=== PATIENT | male | born 1990 | race Caucasian/White ===

== ENCOUNTER 2017-07-29 20:31 | Emergency (ER) | payer OTHER ==
[2017-07-29] MEDS ORDERED: OXYCODONE/APAP 5/325 TAB PO ONE (21:19)
--- NOTE | 2017-07-29 21:19 | EDPHY ---
H & P Time Seen by Provider: 07/29/17 21:08 HPI/ROS: CHIEF COMPLAINT: Left hand pain HISTORY OF PRESENT ILLNESS: 27-year-old male arrives via private vehicle complaining of acute left 4th metacarpal pain injuries playing volleyball, diving for a ball and someone kicked his hand accidentally. Pain to the general location of the 4th metacarpal. No paresthesia. No sensory deficit. Occurred shortly prior to arrival. PHYSICAL EXAM (Prior to examination, patient consented to physical exam, hands were washed and my usual and customary physical exam procedures followed) 1) GENERAL: Well-developed, well-nourished, alert and oriented . appears uncomfortable 2) HEAD: Normocephalic 3) HEENT: Pupils equal, round, reactive to light bilaterally. 4) LUNGS: Breathing comfortably. 5) MUSCULOSKELETAL: Tender to palpation 4th metacarpal. No deformity no angulation. No shortening of digits. Normal cascading of digits Soft compartments. Normal coloration. 6) SKIN: intact 7) VASCULAR: pulses and cap refill present are brisk 8) NEUROLOGIC: Radial, ulnar, median nerve function intact with no deficits appreciated on exam DIFFERENTIAL DIAGNOSIS: in no particular order including but not limited to fracture, sprain, compartment syndrome Procedure: Splint a volar Orthoglass splint was applied by ER administrative technician. After application of the splint I returned and re-examined the patient. The splint was adequately immobilizing the joint and distal to the splint the patient's circulation and sensation were intact. Patient shows no signs of compartment syndrome. Was given orthopedic precautions. Smoking Status: Never smoked Constitutional: Initial Vital Signs Temperature (C) 36.7 C 07/29/17 20:33 Heart Rate 81 07/29/17 20:33 Respiratory Rate 17 07/29/17 20:33 Blood Pressure 131/65 H 07/29/17 20:33 O2 Sat (%) 99 07/29/17 20:33 O2 Delivery Mode Room Air Allergies/Adverse Reactions: aspirin Allergy (Verified 07/29/17 20:33) codeine Allergy (Verified 07/29/17 20:33) crab Allergy (Verified 07/29/17 20:33) ibuprofen Allergy (Verified 07/29/17 20:33) morphine Allergy (Verified 07/29/17 20:33) salicylic acid Allergy (Verified 07/29/17 20:33) Home Medications: Medication Instructions Recorded NK [No Known Home Meds] 07/29/17 MDM/Departure - MDM Imaging Results: Imaging Impressions Hand X-Ray 07/29/17 20:36 Impression: Nondisplaced transverse fracture of the distal 4th metacarpal. Images reviewed by myself Medications Given: Discontinued Medications Ondansetron HCl (Zofran Odt 4 Mg Prepack#2) 1 btl TAKEHOME EDNOW ONE Stop: 07/29/17 21:26 Last Admin: 07/29/17 21:27 Dose: 1 btl Oxycodone/Acetaminophen (Percocet 5/325) 2 tab PO EDNOW ONE Stop: 07/29/17 21:20 Last Admin: 07/29/17 21:25 Dose: 2 tab Oxycodone/Acetaminophen (Percocet 5/325mg Prepack#4) 1 btl TAKEHOME EDNOW ONE Stop: 07/29/17 21:21 Last Admin: 07/29/17 21:25 Dose: 1 btl ED Course/Re-evaluation: Patient is neurovascular intact no evidence of compartment syndrome.Care of patient under supervision of secondary supervising physician Dr Alonso . - Depart Disposition: Home, Routine, Self-Care Clinical Impression: Fracture of fourth metacarpal bone of left hand Qualifiers: Encounter type: initial encounter Fracture type: closed Metacarpal location: neck Fracture alignment: nondisplaced Qualified Code(s): S62.365A - Nondisplaced fracture of neck of fourth metacarpal bone, left hand, initial encounter for closed fracture Condition: Good Instructions: Oxycodone/Acetaminophen (By mouth), Ondansetron (By mouth), Hand Fracture (ED) Additional Instructions: Return to the ER immediately if you experience discoloration, have worsening pain, numbness, tingling, or any other symptoms that concern you. If you received x-rays in the emergency department today, be advised, that ligamentous , tendon, muscular, and other non-bony injury cannot be fully ruled out. Try to keep your affected extremity elevated above the level of your chest, and keep cold packs on the affected area, for the next 48 hours. Referrals: Diaz Bird MD [Medical Doctor] - 2-3 days, call for appt. (Dr. Bird is a hand surgeon)
[2017-07-29] MEDS ORDERED: OXYCODONE/APAP 5/325MG PREPACK#4 BTL TAKEHOME ONE (21:20)
[2017-07-29] MEDS ORDERED: ONDANSETRON 4MG PREPACK#2 BTL TAKEHOME ONE ×2 (21:24→21:25)
[2017-07-29 21:51] VITALS: BP 130/80; PULSE 100; RESP 16; TEMP 98.6; O2SAT 95
== END 2017-07-29 21:49 | disposition home or self-care (01) ==
DX: S62.365A Nondisplaced fracture of neck of fourth metacarpal bone, left hand, initial encounter for closed fracture (principal); W50.1XXA Accidental kick by another person, initial encounter; Y99.8 Other external cause status; Y93.68 Activity, volleyball (beach) (court)

== ENCOUNTER 2018-01-24 07:55 | Emergency (ER) | payer OTHER ==
--- NOTE | 2018-01-24 08:17 | EDPHY ---
H & P Time Seen by Provider: 01/24/18 08:04 HPI/ROS: Chief complaint. Fever HPI. 27-year-old male awoke this morning at 3:00 a.m. With chills. He had nausea vomiting but no diarrhea. He then developed headache, muscle aches. Denies abdominal pain. No recent travel or known exposures. No urinary symptoms. No rash. He and his girlfriend note fever to 101 degrees at 7:00 a.m.. He did not take anything for his fever. Some cough but no chest discomfort or shortness of breath. ROS Constitutional. Fever Eyes. no problems with vision ENT. Congestion Cardiovascular. no chest pain Respiratory. Cough Abdominal. Vomiting . no problems urinating MS. Myalgias Skin. no rash Lymph. no swollen glands Neuro. headache, no dizziness, no difficulty walking or with speech Past Medical/Surgical History: Appendectomy Social History: Single, nonsmoker, no alcohol Smoking Status: Never smoked Physical Exam: General Appearance: Alert well-developed male mild distress vital signs significant for heart rate of 101. Afebrile Eyes: Pupils equal and round no pallor or injection. ENT, Mouth: Mucous membranes are moist. Respiratory: There are no retractions, lungs are clear to auscultation. Cardiovascular: Regular rate and rhythm. Gastrointestinal: Abdomen is soft and nontender, no masses, bowel sounds normal. Neurological: Awake and alert, sensory and motor exams grossly normal. Skin: Warm and dry, no rashes. Musculoskeletal: Neck is supple nontender. Extremities symmetrical, full range of motion. Psychiatric: Patient is oriented X 3, there is no agitation. Constitutional: Initial Vital Signs Temperature (C) 36.8 C 01/24/18 07:59 Heart Rate 101 H 01/24/18 07:59 Respiratory Rate 18 01/24/18 07:59 Blood Pressure 124/80 H 01/24/18 07:59 O2 Sat (%) 95 01/24/18 07:59 O2 Delivery Mode Room Air Allergies/Adverse Reactions: aspirin Allergy (Verified 01/24/18 07:58) codeine Allergy (Verified 01/24/18 07:58) crab Allergy (Verified 01/24/18 07:58) ibuprofen Allergy (Verified 01/24/18 07:58) morphine Allergy (Verified 01/24/18 07:58) salicylic acid Allergy (Verified 01/24/18 07:58) Home Medications: Medication Instructions Recorded Ondansetron Odt [Zofran Odt] 4 mg PO Q4PRN PRN #4 tab 01/24/18 Medical Decision Making Procedures: IV normal saline with target of 1 L initially. Zofran IV. Tylenol orally. Flu swab ED Course/Re-evaluation: Re-evaluation at 8:55 a.m.. Patient feeling better. Re-evaluation again at 10:10 a.m.. Patient feeling better. His symptoms are largely resolved. No nausea vomiting. No headache. Neck back pain are improved. Taking oral fluids. The patient, his girlfriend, and I discussed laboratory evaluation, treatment plan including criteria for return importance of follow-up and further evaluation. He expresses understanding and Differential Diagnosis: I think this is viral syndrome. Considered influenza. I do not think the patient has bacterial infection. I have considered pneumonia as well. - Data Points Laboratory Results: Laboratory Results 01/24/18 08:20 01/24/18 08:20 01/24/18 01/24/18 01/24/18 08:45 08:20 08:20 WBC RBC Hgb Hct MCV MCH MCHC RDW Plt Count MPV Neut % (Auto) Lymph % (Auto) [place] % (Auto) Eos % (Auto) Baso % (Auto) Nucleat RBC Rel Count Absolute Neuts (auto) Absolute Lymphs (auto) Absolute Monos (auto) Absolute Eos (auto) Absolute Basos (auto) Absolute Nucleated RBC Immature Gran % Immature Gran # Sodium 144 mEq/L mEq/L (135-145) Potassium 3.6 mEq/L mEq/L (3.5-5.2) Chloride 105 mEq/L mEq/L (97-110) Carbon Dioxide 26 mEq/l mEq/l (22-31) Anion Gap 13 mEq/L mEq/L (8-16) BUN 19 mg/dL mg/dL (7-23) Creatinine 1.0 mg/dL mg/dL (0.7-1.3) Estimated GFR > 60 Glucose 96 mg/dL mg/dL (70-100) Calcium 9.8 mg/dL mg/dL (8.5-10.4) Lipase 75 IU/L IU/L (23-300) Nasal Influenza A PCR NEGATIVE FOR FLU A (NEGATIVE) Nasal Influenza B PCR NEGATIVE FOR FLU B (NEGATIVE) RSV (PCR) NEGATIVE FOR RSV (NEGATIVE) 01/24/18 08:20 WBC 14.58 10^3/uL H 10^3/uL (3.80-9.50) RBC 4.93 10^6/uL 10^6/uL (4.40-6.38) Hgb 15.1 g/dL g/dL (13.7-17.5) Hct 43.5 % % (40.0-51.0) MCV 88.2 fL fL (81.5-99.8) MCH 30.6 pg pg (27.9-34.1) MCHC 34.7 g/dL g/dL (32.4-36.7) RDW 11.6 % % (11.5-15.2) Plt Count 194 10^3/uL 10^3/uL (150-400) MPV 11.0 fL fL (8.7-11.7) Neut % (Auto) 90.2 % H % (39.3-74.2) Lymph % (Auto) 2.5 % L % (15.0-45.0) [place] % (Auto) 6.8 % % (4.5-13.0) Eos % (Auto) 0.1 % L % (0.6-7.6) Baso % (Auto) 0.1 % L % (0.3-1.7) Nucleat RBC Rel Count 0.0 % % (0.0-0.2) Absolute Neuts (auto) 13.15 10^3/uL H 10^3/uL (1.70-6.50) Absolute Lymphs (auto) 0.36 10^3/uL L 10^3/uL (1.00-3.00) Absolute Monos (auto) 0.99 10^3/uL H 10^3/uL (0.30-0.80) Absolute Eos (auto) 0.01 10^3/uL L 10^3/uL (0.03-0.40) Absolute Basos (auto) 0.02 10^3/uL 10^3/uL (0.02-0.10) Absolute Nucleated RBC 0.00 10^3/uL 10^3/uL (0-0.01) Immature Gran % 0.3 % % (0.0-1.1) Immature Gran # 0.05 10^3/uL 10^3/uL (0.00-0.10) Sodium Potassium Chloride Carbon Dioxide Anion Gap BUN Creatinine Estimated GFR Glucose Calcium Lipase Nasal Influenza A PCR Nasal Influenza B PCR RSV (PCR) Medications Given: Discontinued Medications Acetaminophen (Tylenol) 1,000 mg PO EDNOW ONE Stop: 01/24/18 08:29 Last Admin: 01/24/18 08:42 Dose: 1,000 mg Sodium Chloride (Ns) 1,000 mls @ 0 mls/hr IV EDNOW ONE; Wide Open PRN Reason: Protocol Stop: 01/24/18 08:28 Last Admin: 01/24/18 08:42 Dose: 1,000 mls Ondansetron HCl (Zofran) 4 mg IVP EDNOW ONE Stop: 01/24/18 08:28 Last Admin: 01/24/18 08:42 Dose: 4 mg Departure - Departure Disposition: Home, Routine, Self-Care Clinical Impression: Viral syndrome Condition: Good Instructions: Fever in Adults (ED) Additional Instructions: Tylenol 1000 mg every 4-6 hours, drink plenty of fluids and stay hydrated. Zofran if needed for nausea and vomiting. Return for worsening symptoms. Recheck in 1-2 days if not improving Referrals: NONE *PRIMARY CARE P,. [Primary Care Provider] - As per Instructions Corazon Alvarado MD [[facility] [place] Primary Care Provider] - 2-3 days, if not improved Stand Alone Forms: Work Excuse Prescriptions: Ondansetron Odt [Zofran Odt] 4 mg PO Q4PRN PRN #4 tab PRN Reason: Nausea/Vomiting, Use 1st
[2018-01-24] MEDS ORDERED: ONDANSETRON 4 MG/2 ML VIAL IVP ONE (08:27)
[2018-01-24] MEDS ORDERED: NS 1,000 ML IV ONE (08:27)
[2018-01-24] MEDS ORDERED: ACETAMINOPHEN 500 MG TAB PO ONE (08:28)
[2018-01-24 08:59] LABS: PLATELET COUNT 194 10^3/uL (150-400)
[2018-01-24 10:37] VITALS: BP 128/58
== END 2018-01-24 10:37 | disposition home or self-care (01) ==
DX: B34.9 Viral infection, unspecified (principal); E86.9 Volume depletion, unspecified
CPT/HCPCS: 96374; J2405